=== PATIENT | female | born 1975 | race Caucasian/White ===

== ENCOUNTER → 2018-04-09 | Outpatient (CLI) | payer OTHER ==
[2017-06-06 10:17] VITALS: BP 116/83
[~2018-04-09] MED LIST: HYDROCODON-ACET15 ML PO
== END ==
LOC: PT 15:30
DX: Z01.818 Encounter for other preprocedural examination (principal)

== ENCOUNTER 2018-05-22 16:00 | Outpatient (RCR) | payer OTHER ==
[2017-06-06 10:17] VITALS: BP 116/83
== END 2018-05-22 16:30 | disposition home or self-care (01) ==
LOC: PT 16:00
DX: Z47.89 Encounter for other orthopedic aftercare (principal)

== ENCOUNTER 2018-09-19 12:10 | Emergency (ER) | payer BC ==
[~2018-09-19] VITALS: Ht 175.3 cm; Wt 100.0 kg
[2018-09-19 13:22] LABS: ALBUMIN 4.3 g/dL (3.5-5.0); CALCIUM 9.4 mg/dL (8.4-10.2); TOTAL BILIRUBIN 0.4 mg/dL (0.2-1.3); TOTAL PROTEIN 7.6 g/dL (6.3-8.2)
[2018-09-19 13:43] LABS: POTASSIUM 3.7 mmol/L (3.6-5.0)
[2018-09-19] MEDS ORDERED: HYDROCODON-ACET15 ML PO (15:10)
[2018-09-19 15:12] VITALS: BP 130/72
[2018-09-19 15:40] LABS: URINE APPEARANCE CLEAR; URINE COLOR YELLOW
[2018-09-19 15:41] LABS: URINE BILIRUBIN NEGATIVE (NEGATIVE); URINE BLOOD TRACE (NEGATIVE); URINE GLUCOSE NEGATIVE (NEGATIVE); URINE KETONE 1+ (NEGATIVE); URINE LEUKOCYTE ESTERASE NEGATIVE (NEGATIVE); URINE NITRATE NEGATIVE (NEGATIVE); URINE PROTEIN(semi-quant) TRACE mg/dL (NEGATIVE); URINE UROBILINOGEN NORMAL (NORMAL); URINE WBC 0-1 /hpf (0-3)
== END 2018-09-19 15:22 | disposition home or self-care (01) ==
LOC: ED 12:10
PROVIDERS: Nurse Practitioner Primary Care
DX: N20.0 Calculus of kidney (principal); Z88.2 Allergy status to sulfonamides; Z98.84 Bariatric surgery status
CPT/HCPCS: J1885; Q9967